=== PATIENT | male | born 1955 | race Caucasian/White ===

== ENCOUNTER → 2016-07-03 | Outpatient (CLI) | payer MEDICARE, OTHER ==
[~2016-07-03] MED LIST: CIPRO500 MG PO; CORTISPORIN SUS10 ML OT; FLAGYL500 MG PO; KLONOPIN1 M1 PO; LISINOPRIL20 MG PO; PERCOCET 325 MG1 TA7 PO; PRAVACHOL20 MG PO; TOPROL XL25 MG PO; VALIUM10 MG PO
--- NOTE | ~2016-07-03 | ST ---
[place], [place] EXERCISE STRESS TEST REPORT [facility]: [id number] UNIT #: [id number] ROOM: DOCTOR: JORDY RATLIFF MD BIRTHDATE: [birth year] DOS: 07/03/2016 ADDENDUM Addendum to stress test report already dictated on the patient by Selvin May, resident, I agree with the dictation. JORDY RATLIFF MD CM:STRESS:EXERCISE STRESS TEST REPORT [id number] JORDY RATLIFF MD
--- NOTE | ~2016-07-03 | ST ---
[place], [place] EXERCISE STRESS TEST REPORT NAME: LORETO GAYTAN [facility] #: [id number] UNIT #: [id number] ROOM: DOCTOR: SEBASTIAN GARAY DO BIRTHDATE: [birth year] DOS: 07/03/2016 INDICATION FOR STRESS TEST: Shortness of breath. DESCRIPTION OF PROCEDURE: The patient was given IV Lexiscan 0.4 mg over 10 seconds followed by nuclear injection at 40 seconds. The test was terminated due to completion of exam. Baseline heart rate was 72, blood pressure is 126/82. Heart rate at 2 minutes was 101 and blood pressure at 2 minutes was 122/78. EKG RESPONSE: At baseline, the patient was in normal sinus rhythm, no ST changes were seen. CLINICAL RESPONSE TO TEST: The patient had shortness of breath with hot flashes. Interpretation of the exam is negative stress test. SEBASTIAN GARAY DO JORDY RATLIFF MD CM:STRESS:EXERCISE STRESS TEST REPORT [id number] SEBASTIAN GARAY DO
== END | disposition home or self-care (01) ==
LOC: CARD 02:14
DX: R06.02 Shortness of breath (principal); R53.81 Other malaise

== ENCOUNTER → 2016-09-10 | Outpatient (CLI) | payer MEDICARE, OTHER ==
[2016-09-10 16:52] LABS: BASO # 0.1 10*3/uL (0.0-0.1); EOS # 0.2 10*3/uL (0.0-0.4); HEMATOCRIT 46.8 % (42.0-52.0); HEMOGLOBIN 16.1 g/dl (14.0-18.0); LYMPH # 1.9 10*3/uL (1.3-4.4); LYMPH % 37.2 % (27.0-41.0); MEAN CELL VOLUME 87.8 fl (80.0-94.0); MEAN CORPUSCULAR HGB 30.2 pg (27.0-31.0); MEAN CORPUSCULAR HGB CONC 34.4 g/dl (33.0-37.0); MEAN PLATELET VOLUME 9.8 fl (9.6-12.3); MONO # 0.6 10*3/uL (0.1-1.0); MONO % 10.8 % (3.0-9.0); NEUT # 2.4 10*3/uL (2.3-7.9); NEUT % 47.8 % (47.0-73.0); PLATELET COUNT AUTOMATED 199 10*3/uL (130-400); RED BLOOD COUNT 5.33 10*6/uL (4.50-5.90); RED CELL DISTRI WIDTH 11.9 % (0-14.5); WHITE BLOOD COUNT 5.1 10*3/uL (4.8-10.8)
[2016-09-10 17:29] LABS: ALBUMIN 4.1 gm/dl (3.1-4.5); ALKALINE PHOSPHATASE 79 U/L (45-117); BILIRUBIN, DIRECT 0.2 mg/dL (0.0-0.2); BUN 13 mg/dl (7-24); CARBON DIOXIDE 25 mmol/L (21-32); CHLORIDE 106 mmol/L (98-107); EST GLOM FILT AFRICAN AMERICAN > 60 ml/min; GLUCOSE 122 mg/dL (65-99); SGOT/AST 16 IU/L (3-35); SGPT/ALT 31 U/L (12-78); SODIUM 140 mmol/L (136-145); TOTAL PROTEIN 7.2 gm/dL (6.4-8.2)
[2016-09-11 22:05] LABS: HEPATITIS C QUANTITATION HCV Not Detected IU/mL (.)
== END | disposition home or self-care (01) ==
LOC: LAB 02:01
PROVIDERS: Nurse Practitioner Family
DX: B19.20 Unspecified viral hepatitis C without hepatic coma (principal)

== ENCOUNTER → 2019-02-23 | Outpatient (CLI) | payer MEDICARE, OTHER ==
[2019-02-23 12:09] LABS: BASO % 0.8 % (0.0-1.0); EOS # 0.1 10*3/uL (0.0-0.4); HEMATOCRIT 43.5 % (42.0-52.0); HEMOGLOBIN 14.8 g/dl (14.0-18.0); LYMPH % 23.9 % (27.0-41.0); MEAN CELL VOLUME 94.4 fl (80.0-94.0); MEAN CORPUSCULAR HGB 32.1 pg (27.0-31.0); MEAN PLATELET VOLUME 9.6 fl (9.6-12.3); MONO # 0.4 10*3/uL (0.1-1.0); MONO % 10.6 % (3.0-9.0); NEUT # 2.4 10*3/uL (2.3-7.9); NEUT % 61.2 % (47.0-73.0); PLATELET COUNT AUTOMATED 171 10*3/uL (130-400); RED BLOOD COUNT 4.61 10*6/uL (4.50-5.90); RED CELL DISTRI WIDTH 12.5 % (0-14.5)
[2019-02-24 08:06] LABS: RHEUMATOID ARTHRITIS FACTOR <10.0 IU/mL (0.0-13.9)
[2019-02-24 10:04] LABS: HEPATITIS B SURFACE AG Negative (Negative)
[2019-02-24 14:06] LABS: ANTI-RNP ANTIBODIES <0.2 AI (0.0-0.9)
[2019-02-25 00:04] LABS: CCP ANTIBODIES IGG/IGA <1 units (0-19)
[2019-02-25 01:05] LABS: PTT-LA 38.9 sec (0.0-51.9)
[2019-02-25 07:06] LABS: DVVTMIXRFX CHG; LUPUS DRVVT 101.6 sec (0.0-47.0)
[2019-02-25 09:05] LABS: LUPUS REFLEX INTERPRETATION Comment: (.)
[2019-02-26 11:16] LABS: HEPATITIS C VIRUS ANTIBODY >11.0 s/co (0.0-0.9)
[2019-02-26 12:08] LABS: HLA-B27 ANTIGEN Negative (.)
== END | disposition home or self-care (01) ==
LOC: LAB 11:43
PROVIDERS: Orthopaedic Surgery
DX: M47.812 Spondylosis without myelopathy or radiculopathy, cervical region (principal); M25.50 Pain in unspecified joint; R53.1 Weakness; R20.0 Anesthesia of skin; M25.78 Osteophyte, vertebrae

== ENCOUNTER → 2019-08-11 | Outpatient (CLI) | payer MEDICARE, OTHER | END | disposition home or self-care (01) | LOC: RESCLI 13:47 | DX: I10 Essential (primary) hypertension (principal); I48.0 Paroxysmal atrial fibrillation; E78.5 Hyperlipidemia, unspecified; F41.9 Anxiety disorder, unspecified; Z87.891 Personal history of nicotine dependence ==

== ENCOUNTER → 2020-01-08 | Outpatient (CLI) | payer MEDICARE, OTHER | END | disposition home or self-care (01) | LOC: RESCLI 11:36 | DX: I10 Essential (primary) hypertension (principal); I48.0 Paroxysmal atrial fibrillation; M54.9 Dorsalgia, unspecified; J98.4 Other disorders of lung ==

== ENCOUNTER → 2020-01-19 | Outpatient (CLI) | payer MEDICARE, OTHER | END | disposition home or self-care (01) | LOC: RESCLI 00:41 | DX: M25.511 Pain in right shoulder (principal); M25.512 Pain in left shoulder; I10 Essential (primary) hypertension; I48.0 Paroxysmal atrial fibrillation; G89.29 Other chronic pain; Z87.891 Personal history of nicotine dependence; Z23 Encounter for immunization; Z79.899 Other long term (current) drug therapy; Z85.22 Personal history of malignant neoplasm of nasal cavities, middle ear, and accessory sinuses; Z98.890 Other specified postprocedural states; Z90.49 Acquired absence of other specified parts of digestive tract ==

== ENCOUNTER 2020-02-08 11:08 | Emergency (ER) | payer MEDICARE, OTHER ==
[~2020-02-08] VITALS: Ht 182.8 cm; Wt 95.3 kg
[2020-02-08 11:15] VITALS: BP 116/64
== END 2020-02-08 12:20 | disposition home or self-care (01) ==
LOC: ED 11:08
DX: S90.852A Superficial foreign body, left foot, initial encounter (principal); Z79.899 Other long term (current) drug therapy; W22.8XXA Striking against or struck by other objects, initial encounter; Y93.89 Activity, other specified; Y92.89 Other specified places as the place of occurrence of the external cause; Y99.8 Other external cause status

== ENCOUNTER → 2020-02-17 | Outpatient (CLI) | payer MEDICARE, OTHER | END | disposition home or self-care (01) | LOC: US 01-27 08:30 | PROVIDERS: ATTEND Family Medicine | DX: G89.29 Other chronic pain (principal); M25.511 Pain in right shoulder; M25.512 Pain in left shoulder; I10 Essential (primary) hypertension; I48.0 Paroxysmal atrial fibrillation; Z87.891 Personal history of nicotine dependence ==

== ENCOUNTER → 2020-04-01 | Outpatient (CLI) | payer MEDICARE, OTHER | END | disposition home or self-care (01) | LOC: RESCLI 05:00 | PROVIDERS: ATTEND Family Medicine | DX: I10 Essential (primary) hypertension (principal); I48.0 Paroxysmal atrial fibrillation; M25.511 Pain in right shoulder; E66.9 Obesity, unspecified; Z79.899 Other long term (current) drug therapy; Z98.890 Other specified postprocedural states; Z87.891 Personal history of nicotine dependence ==

== ENCOUNTER → 2020-04-11 | Outpatient (CLI) | payer MEDICARE, OTHER ==
[2020-04-11 10:30] LABS: BASO % 0.8 % (0.0-1.0); EOS # 0.1 10*3/uL (0.0-0.4); EOS % 2.5 % (1.0-4.0); HEMATOCRIT 47.7 % (42.0-52.0); LYMPH # 1.4 10*3/uL (1.3-4.4); LYMPH % 27.7 % (27.0-41.0); MEAN CELL VOLUME 92.3 fl (80.0-94.0); MEAN CORPUSCULAR HGB 30.4 pg (27.0-31.0); MEAN CORPUSCULAR HGB CONC 32.9 g/dl (33.0-37.0); MEAN PLATELET VOLUME 9.6 fl (9.6-12.3); MONO # 0.5 10*3/uL (0.1-1.0); MONO % 9.4 % (3.0-9.0); NEUT % 59.4 % (47.0-73.0); PLATELET COUNT AUTOMATED 184 10*3/uL (130-400); RED BLOOD COUNT 5.17 10*6/uL (4.50-5.90); RED CELL DISTRI WIDTH 12.1 % (0-14.5); WHITE BLOOD COUNT 5.1 10*3/uL (4.8-10.8)
[2020-04-11 10:32] LABS: ALBUMIN 4.3 gm/dl (3.1-4.5); ALKALINE PHOSPHATASE 90 U/L (45-117); BUN 13 mg/dl (7-24); CHLORIDE 110 mmol/L (98-107); CHOLESTEROL 183 mg/dL (<200); CREATININE 1.02 mg/dL (0.70-1.30); HDL CHOLESTEROL 45 mg/dl (40-60); LDL CHOLESTEROL 118 mg/dL (9-159); POTASSIUM 4.1 mmol/L (3.5-5.1); SGOT/AST 7 IU/L (3-35); SGPT/ALT 16 U/L (12-78); SODIUM 140 mmol/L (136-145); TOTAL PROTEIN 7.5 gm/dL (6.4-8.2); TRIGLYCERIDES 99 mg/dl (<150); VLDL CHOLESTEROL 20 mg/dL (6-40)
== END | disposition home or self-care (01) ==
LOC: LAB 00:56 → CARD 10:30
PROVIDERS: Internal Medicine; ATTEND Internal Medicine Nephrology
DX: I11.9 Hypertensive heart disease without heart failure (principal); I48.0 Paroxysmal atrial fibrillation; E66.9 Obesity, unspecified; E78.5 Hyperlipidemia, unspecified; Z79.899 Other long term (current) drug therapy

== ENCOUNTER → 2020-07-13 | Outpatient (CLI) | payer OTHER | END | disposition home or self-care (01) | LOC: RESCLI 03:00 | PROVIDERS: ATTEND Internal Medicine Nephrology | DX: E66.9 Obesity, unspecified (principal); I10 Essential (primary) hypertension; I48.0 Paroxysmal atrial fibrillation; J32.1 Chronic frontal sinusitis; H04.123 Dry eye syndrome of bilateral lacrimal glands; Z79.899 Other long term (current) drug therapy ==

== ENCOUNTER → 2021-03-09 | Day surgery (SDC) | payer OTHER ==
[2021-03-09] VITALS (7 sets, daily range): BP systolic 91–147; BP diastolic 49–84
[~2021-03-09] VITALS: Ht 182.8 cm; Wt 97.5 kg
[~2021-03-09] MED LIST changes: +CARTIA XT120 MG PO; +PERCOCET 5-3251 EACH PO; +XARELTO20 M1 PO
== END | disposition home or self-care (01) ==
LOC: SDC 03-06 13:15
PROVIDERS: ATTEND Surgery
DX: L72.0 Epidermal cyst (principal); D48.1 Neoplasm of uncertain behavior of connective and other soft tissue; I48.91 Unspecified atrial fibrillation; Z86.711 Personal history of pulmonary embolism; F41.9 Anxiety disorder, unspecified; E78.5 Hyperlipidemia, unspecified; I10 Essential (primary) hypertension; Z87.891 Personal history of nicotine dependence; Z79.899 Other long term (current) drug therapy; Z20.822 Contact with and (suspected) exposure to COVID-19

== ENCOUNTER → 2021-07-31 | Outpatient (CLI) | payer OTHER | END | disposition home or self-care (01) | LOC: RESCLI 01:21 | PROVIDERS: ATTEND Internal Medicine Nephrology | DX: I10 Essential (primary) hypertension (principal); I48.0 Paroxysmal atrial fibrillation; Z79.899 Other long term (current) drug therapy; Z98.890 Other specified postprocedural states ==

== ENCOUNTER → 2021-12-19 | Outpatient (CLI) | payer OTHER | END | disposition home or self-care (01) | LOC: RESCLI 14:43 | PROVIDERS: ATTEND Internal Medicine | DX: I48.91 Unspecified atrial fibrillation (principal); I10 Essential (primary) hypertension; G47.33 Obstructive sleep apnea (adult) (pediatric); E78.5 Hyperlipidemia, unspecified; K57.90 Diverticulosis of intestine, part unspecified, without perforation or abscess without bleeding; F41.9 Anxiety disorder, unspecified; Z79.899 Other long term (current) drug therapy ==

== ENCOUNTER 2023-12-01 10:53 | Emergency (ER) | payer OTHER ==
[~2023-12-01] VITALS: Ht 182.8 cm; Wt 90.7 kg
[2023-12-01 11:08] VITALS: BP 147/73
== END 2023-12-01 12:06 | disposition home or self-care (01) ==
LOC: ED 10:53
DX: R04.0 Epistaxis (principal); F41.9 Anxiety disorder, unspecified; I10 Essential (primary) hypertension; Z98.890 Other specified postprocedural states